=== PATIENT | female | born 1985 | race Caucasian/White ===

== ENCOUNTER 2017-04-19 06:39 | Emergency (ER) | payer OTHER, BC ==
[2017-04-19] MEDS: KETOROLAC 30 MG/ML VIAL (J1885) IV (07:00)
[2017-04-19 08:05] LABS: D-DIMER QUANT < 270.0 ng/ml (<500)
== END 2017-04-19 08:59 | disposition home or self-care (01) ==
LOC: M ED 06:39
DX: R07.89 Other chest pain (principal)
CPT/HCPCS: J1885

== ENCOUNTER → 2019-09-25 | Outpatient (REF) | payer OTHER ==
[~2019-09-25] MED LIST: IBUP80TA PO; PERC5TAB12 PO
[2019-09-25 14:06] LABS: HEMATOCRIT 41.4 % (36.0-47.0); HEMOGLOBIN 13.5 g/dl (12.0-15.5); MEAN CORPUSCULAR HEMOGLOBIN 31.3 pg (27.0-33.0); MEAN CORPUSCULAR HGB CONC 32.6 g/dl (32.0-36.5); MEAN CORPUSCULAR VOLUME 96.1 fl (80.0-96.0); PLATELET COUNT, AUTOMATED 237 10^3/uL (150-450); RED BLOOD COUNT 4.31 10^6/uL (4.00-5.40); WHITE BLOOD COUNT 5.7 10^3/uL (4.0-10.0)
[2019-09-25 16:57] LABS: CHLAMYDIA DNA AMPLIFICATION NEGATIVE (NEGATIVE); GC DNA AMPLIFICATION NEGATIVE (NEGATIVE)
[2019-09-26 10:31] LABS: HEPATITIS C VIRUS ABY INDEX 0.2 INDEX (<0.8); HIV 1&2 SCREEN CENTAUR NEGATIVE (NEGATIVE)
== END ==
LOC: M PLALAB 10:36
PROVIDERS: ATTEND Advanced Practice Midwife
DX: Z34.01 Encounter for supervision of normal first pregnancy, first trimester (principal)

== ENCOUNTER → 2019-11-28 | Outpatient (CLI) | payer OTHER ==
--- NOTE | 2019-12-29 08:16 | REP ---
COMPLETE OBSTETRIC ULTRASOUND CLINICAL: Anatomical evaluation. TECHNIQUE: Transabdominal obstetrical ultrasound with color Doppler evaluation. FINDINGS: Ultrasound examination demonstrates a single live intrauterine in transverse lie with head to the maternal left. Placenta noted posteriorly and grade 0 without evidence for placenta previa or abruption. Amniotic fluid volume is normal. Cervix measures 4.6 cm in length and appears closed. 4.1 cm anterior intramural fibroid is suspected. heart rate equals 129 beats per minute. MEASUREMENTS: BPD 47 mm 20 weeks 4 days HC 174 mm 20 weeks 0 days AC 151 mm 20 weeks 3 days FL 31 mm 19 weeks 6 days HL 29 mm 19 weeks 6 days Anatomical assessment demonstrates normal structures including posterior fossa, thalami, stomach, kidneys, bladder, four chamber heart and outflow tracts, three-vessel cord/cord insertion, facial features and extremities. Limited evaluation of the spine noted. IMPRESSION: Single live intrauterine in transverse lie demonstrating appropriate estimated weight. Limited evaluation of the spine may warrant reevaluation and follow-up. The remainder of the anatomical assessment is complete and normal. MTDD
== END ==
LOC: M WHC 09:56
PROVIDERS: ATTEND Specialist
DX: Z34.02 Encounter for supervision of normal first pregnancy, second trimester (principal); Z3A.20 20 weeks gestation of pregnancy

== ENCOUNTER → 2019-12-23 | Outpatient (CLI) | payer OTHER ==
--- NOTE | 2020-01-01 11:39 | REP ---
OBSTETRIC SONOGRAPHY HISTORY: Supervision of for anatomy follow up spine. FINDINGS: Scanning through the gravid uterus demonstrates a single living intrauterine gestation in a variable lie. motion is observed, and heart rate is recorded at 153 beats per minute. A posterior grade 1 placenta is seen without evidence of previa or abruption. Amniotic fluid is subjectively normal. Closed cervical length is measured at 4.9 cm, viewed transabdominally. spine is visualized on todays study and is normal in appearance. Also visualized are face and profile nose and lips, four chamber heart, left-sided stomach, and kidneys. BIOMETRY CHART: BPD 5.9 cm 24 weeks 1 day Head Circumference 21.8 cm 23 weeks 6 days Abdominal Circumference 19.4 cm 24 weeks 1 day Femur Length 4.1 cm 23 weeks 3 days Humeral Length 3.9 cm 23 weeks 6 days HC/AC ratio normal 1.12 Cephalic index normal 0.75 Estimated weight 633 grams, 1 pound 68 ounces 58th percentile for 23 weeks 0 days IMPRESSION: Single living intrauterine gestation at 23 weeks 6 days by todays composite criteria. SULTANA by todays sonography April 14, 2020. spine images are unremarkable. MTDD
== END ==
LOC: M WHC 11:04
PROVIDERS: ATTEND Advanced Practice Midwife
DX: Z34.82 Encounter for supervision of other normal pregnancy, second trimester (principal); Z36.2 Encounter for other antenatal screening follow-up; Z3A.23 23 weeks gestation of pregnancy

== ENCOUNTER → 2020-01-15 | Outpatient (CLI) | payer OTHER ==
[2020-01-15 14:07] LABS: BASO % 0.1 % (0.0-1.0); EOS # 0.1 10^3/uL (0.0-0.5); EOS % 1.3 % (0.0-3.0); HEMATOCRIT 38.2 % (36.0-47.0); HEMOGLOBIN 12.4 g/dl (12.0-15.5); LYMPH # 1.3 10^3/uL (1.5-5.0); LYMPH % 13.1 % (24.0-44.0); MEAN CORPUSCULAR HEMOGLOBIN 32.1 pg (27.0-33.0); MEAN CORPUSCULAR HGB CONC 32.5 g/dl (32.0-36.5); MONO # 0.8 10^3/uL (0.0-0.8); NEUTROPHILS # 7.6 10^3/uL (1.5-8.5); NEUTROPHILS % 76.9 % (36.0-66.0); PLATELET COUNT, AUTOMATED 232 10^3/uL (150-450); RED BLOOD COUNT 3.86 10^6/uL (4.00-5.40); WHITE BLOOD COUNT 9.8 10^3/uL (4.0-10.0)
== END ==
LOC: M PLALAB 08:18
PROVIDERS: ATTEND Advanced Practice Midwife
DX: Z34.02 Encounter for supervision of normal first pregnancy, second trimester (principal); Z36.89 Encounter for other specified antenatal screening

== ENCOUNTER → 2020-03-12 | Outpatient (REF) | payer OTHER ==
[2020-03-12 13:57] LABS: ALBUMIN 2.6 GM/DL (3.2-5.2); ALT/SGPT 30 U/L (12-78); BILIRUBIN,DIRECT < 0.1 MG/DL (0.0-0.2); BILIRUBIN,TOTAL 0.2 MG/DL (0.2-1.0); TOTAL PROTEIN 5.7 GM/DL (6.4-8.2)
== END ==
LOC: M PLALAB 10:31
PROVIDERS: ATTEND Advanced Practice Midwife
DX: L29.9 Pruritus, unspecified (principal)

== ENCOUNTER → 2020-03-24 | Outpatient (REF) | payer OTHER | LOC: M PLALAB 11:11 | PROVIDERS: ATTEND Obstetrics & Gynecology | DX: Z34.83 Encounter for supervision of other normal pregnancy, third trimester (principal); Z3A.36 36 weeks gestation of pregnancy ==

== ENCOUNTER 2020-04-02 06:51 | Inpatient (IN) | payer OTHER ==
[~2020-04-02] VITALS: Ht 167.6 cm; Wt 92.9 kg
[2020-04-02] MEDS ORDERED: PENICILLIN G POTASSIUM IV 5 MU in D5W MINI-BAG PLUS 100 ML IV STA (10:07)
[2020-04-02] MEDS ORDERED: LACTATED RINGER'S 1000 ML IV STA (10:07)
[2020-04-02] MEDS ORDERED: LR 1,000 ML IV SCH (10:07)
--- NOTE | 2020-04-02 10:29 | HPEPDOC ---
Obstetrical History & Physical General Date of Admission Apr 02, 2020 at 09:57 Primary Care Physician: LORRAINE ATKINS CNM History of Present Illness Zee is a 34 y/o at 37.3 weeks EGA by LMP on 07/15/19, with SULTANA 04/20/20. She started care at [facility] in the first trimester. has been uncomplicated. She had LFTs and bile acids drawn on 03/02/20, for itching but they were WNL. She presented to Labor and Delivery with a complaint of contractions that started at 0500 this morning. She denies vaginal bleeding, LOF. Reports active movement. Denies headache, visual changes, chest pain, SOB. Chief Complaint: Contractions, term Information Provided By: Patient Age: 34 : 1 Term: 0 Pre-term: 0 Abortions: 0 Livin Care Care: Good Care Dating Final EDC: Apr 20, 2020 Final EDC by: LMP LMP: Jul 15, 2019 1st Trimester Date: Sep 25, 2019 Weeks + Days: 10.4 EGA at Admission: 37.3 Antepartum Course Pre- weight (lbs.): 150 Past Medical History Past Obstetrical History : Past Obstetrical History: Primgravida [employer] History: No pertinent history Past Medical History Medical History Migraines, currently taking Fioricet PRN, stopped taking Topamax and Imitrex with Situational depression, no medications Surgical History: Denies/None Family History Significant Family History: Diabetes (MGF Type 2), Heart disease (Father-- atrial fibrillation), Hyperlipidemia (Father), Other (Osteopenia) Social History Marital Status: Single Family situation: Spouse/partner home Psychosocial History: Anxiety, Depression * Smoker: non-smoker Alcohol: Denies Drugs: denies Imunizations Tdap status: current Influenza Status: current Allergies Coded Allergies: escitalopram (Verified Allergy, Unknown, 04/02/20) nausea and sleep disturbances Medications Scheduled PRN Ibuprofen (Ibuprofen) 800 Mg Tab, 800 MG PO Q6H PRN for PAIN Oxycodone HCl/Acetaminophen (Percocet 5-325 mg Tablet) 1 Tab Tab, 1 TAB PO Q6H PRN for PAIN Physical Examination Physical Examination GENERAL: Alert and oriented times three. ABDOMEN: Gravid and non-tender to touch. FETUS: Is vertex (VTX) by sterile vaginal examination (SVE), fetus is vertex (VTX) by David. EFW 6-6.5lbs by Naina. HEART RATE: Regular rate and rhythm. LUNGS: Clear to auscultation (CTA) bilaterally EXTREMITIES: No edema. No clonus. Deep tendon reflexes (DTRs) + 2. Laboratory Data 24H LABS Laboratory Tests 2 04/02/20 10:05: Serology Scanned Report Hepatitis B Testing Pertinent Laboratoy Data Blood Type: A+ RBC Antibody Screen: Negative HIV: Negative Hepatitis B: Negative Hepatitis C: Negative Rapid Plasma Reagin: Nonreactive Rubella: Immune Chlamydia/Gonorrhea: Negative Group B Streptococcus: Positive Glucose Tolerance Test: 117 Steroid Therapy Steroid Therapy: No Vaginal Examination Dilation: 3 cm Effacement: 100% Station: 0 Cervical Consistency: Soft Cervical Position: Middle Presentation: Cephalic presentation Assessment Heart Rate (FHR): 120 Variability: Moderate Accelerations: Positive Decelerations: None Tocometer Contractions: Yes Frequency: regular, every 2-5 min. Duration: greater than 60 seconds Strength: palpated as moderate Multi-drug resistant Organism: No history of MDRO Assessment/Plan Assessment IUP at 37.3 weeks Active Labor GBS Positive Category 1 FHT Plan Admit and orient to Labor and Delivery. Activity as tolerated. Diet: Clear liquids. Group B Streptococcus (GBS) POSITIVE. Penicillin G 5 million unit loading dose, then 2.5million units every 4 hours until delivery. Labs and intravenous (IV) per unit protocol. Counseled on Pitocin and induction of labor (IOL). Lactated Ringers (LR): Bolus 800mL bolus prior to epidural Consult Anesthesia for epidural placement. Anticipate normal spontaneous delivery (). C-S as appropriate. LORRAINE ATKINS CNM Apr 02, 2020 10:29
[2020-04-02 11:37] LABS: HEMATOCRIT 44.5 % (36.0-47.0); HEMOGLOBIN 14.9 g/dl (12.0-15.5); MEAN CORPUSCULAR HEMOGLOBIN 31.6 pg (27.0-33.0); MEAN CORPUSCULAR HGB CONC 33.5 g/dl (32.0-36.5); MEAN CORPUSCULAR VOLUME 94.5 fl (80.0-96.0); PLATELET COUNT, AUTOMATED 253 10^3/uL (150-450); RED BLOOD COUNT 4.71 10^6/uL (4.00-5.40); WHITE BLOOD COUNT 12.9 10^3/uL (4.0-10.0)
[2020-04-02 11:59] LABS: ALT/SGPT 31 U/L (12-78); BILIRUBIN,TOTAL 0.4 MG/DL (0.2-1.0); CREATININE FOR GFR 0.67 MG/DL (0.55-1.30); GLOMERULAR FILTRATION RATE > 60.0 (>60); LDH LACTATE DEHYDROGENASE 228 U/L (84-246); URIC ACID 4.4 MG/DL (2.6-6.0)
[2020-04-02] MEDS ORDERED: EPIDURAL COMMENT XX SCH (12:01)
[2020-04-02] MEDS ORDERED: ONDANSETRON 4MG/2ML VIAL IV PRN (12:01)
[2020-04-02] MEDS ORDERED: LACTATED RINGER'S 1000 ML IV PRN (12:01)
[2020-04-02] MEDS ORDERED: ePHEDrine SULFATE 25 MG/5 ML(5MG/ML) SYRINGE IV PRN (12:01)
[2020-04-02] MEDS ORDERED: NALOXONE INJ 0.4MG/1ML VIAL (J2310 PER 1MG) IV PRN (12:01)
[2020-04-02] MEDS ORDERED: EPIDURAL/PCA KEYS XX PRN (12:01)
[2020-04-02] MEDS ORDERED: diphenhydrAMINE 50MG/ML VIAL (J1200) IV PRN (12:01)
[2020-04-02] MEDS ORDERED: FENTANYL/ROPIVACAINE/NACL BAG 100 ML EPIDURAL SCH (12:01)
[2020-04-02] MEDS ORDERED: REFRIGERATOR IV KEYS XX PRN (12:01)
--- NOTE | 2020-04-02 12:07 | IPNPDOC ---
Obstetrical Progress Note Date of Service Apr 02, 2020 Subjective Zee is breathing well through contractions. Reports increased sense of pressure, moderate amount of bloody show at this time. Objective SROM for moderate amount of clear fluid. Moderate amount of bloody show with SVE. Assessment Heart Rate (FHR): 135 Variability: Increased Accelerations: Positive Decelerations: None Heart Rate Tracing: Category I Tocometer Contractions: Yes Frequency: regular, every 1-3 min. Sterile Vaginal Examination Dilation: 7 cm Effacement (%): 100% Station: +1 Cervical Consistency: Soft Cervical Position: Anterior Postion/Presentation: Cephalic presentation Assessment and Plan Age: 34 : 1 Term: 0 Pre-term: 0 Abortions: 0 Livin EGA at Admission: 37.3 Status: Reassuring Group B Streptococcus: Positive Anticipate: Vaginal Delivery Additional Comments Patient prepared for epidural placement at this time. LORRAINE ATKINS CNM Apr 02, 2020 12:01
--- NOTE | 2020-04-02 13:52 | IPNPDOC ---
Obstetrical Progress Note Date of Service Apr 02, 2020 Subjective Zee is very comfortable with her epidural at this time. Denies urge to push. Objective Small amount of clear fluid and bloody show with SVE. Assessment Heart Rate (FHR): 135 Variability: Moderate Accelerations: None Decelerations: Variable, Prolonged (alleviated with position change) Heart Rate Tracing: Category II Tocometer Contractions: Yes Frequency: regular, every 2-5 min. Duration: greater than 60 seconds Strength: palpated as moderate, resting tone palp/soft Sterile Vaginal Examination Dilation: 7 cm Effacement (%): 100% Station: +1 Cervical Consistency: Soft Cervical Position: Anterior Postion/Presentation: Cephalic presentation Assessment and Plan Age: 34 : 1 Term: 0 Pre-term: 0 Abortions: 0 Livin EGA at Admission: 37.3 Status: Reassuring Group B Streptococcus: Positive Anticipate: Vaginal Delivery Additional Comments Keller catheter placed by Soraida oL RN. Consider Pitocin augmentation, if no cervical change. LORRAINE ATKINS CNM Apr 02, 2020 13:52
[2020-04-02] MEDS ORDERED: PENICILLIN G POTASSIUM IV 2.5 MU in IV 1 EA IV SCH (16:00)
--- NOTE | 2020-04-02 16:31 | IPNPDOC ---
Obstetrical Progress Note Date of Service Apr 02, 2020 Subjective Zee denies feeling urge to push. Moderate amount of bloody show noted on SVE. Patient opting to wait for her mother/pipe fitter street service to arrive before she starts to push. Reviewed pushing methods and positions. She has received 2 doses of Penicillin G for GBS positive status. Assessment Heart Rate (FHR): 145 Variability: Moderate Accelerations: Positive Decelerations: Late Heart Rate Tracing: Category II Tocometer Contractions: Yes Frequency: regular, every 2-5 min. Duration: greater than 60 seconds Strength: palpated as strong, resting tone palp/soft Sterile Vaginal Examination Dilation: complete Effacement (%): 100% Station: +2 Postion/Presentation: Cephalic presentation Assessment and Plan Age: 34 : 1 Term: 0 Pre-term: 0 Abortions: 0 Livin EGA at Admission: 0 Status: Reassuring Group B Streptococcus: Positive Anticipate: Vaginal Delivery LORRAINE ATKINS CNM Apr 02, 2020 16:31
[2020-04-02] MEDS ORDERED: OXYTOCIN 30 UNITS IN 0.9% NaCl 500ML IV BAG (J2590) As Ordered ONE (18:42)
[2020-04-02] MEDS ORDERED: BENZOCAINE 20% HEMORRHOIDAL OINTMENT 28GM TUBE TOP PRN (19:00)
[2020-04-02] MEDS ORDERED: ACETAMINOPHEN 500 MG TAB PO PRN (19:00)
[2020-04-02] MEDS ORDERED: RHOGAM 300 MCG (1500 IU) INJ (J2790) IM SCH (19:00)
[2020-04-02] MEDS ORDERED: ACETAMINOPHEN TAB 650MG DOSE (2X325MG) PO PRN (19:00)
[2020-04-02] MEDS ORDERED: DOCUSATE SODIUM 100MG CAPSULE PO PRN (19:00)
[2020-04-02] MEDS ORDERED: METHYLERGONOVINE MALEATE 0.2 MG TAB PO PRN (19:00)
[2020-04-02] MEDS ORDERED: IBUPROFEN 800 MG TAB PO PRN (19:00)
[2020-04-02] MEDS ORDERED: MEASLES,MUMPS,RUBELLA VACCINE INJ (MMR-II) (90707) SC SCH (19:00)
[2020-04-02] MEDS ORDERED: ANUSOL HC CREAM 30GM TOP PRN (19:00)
[2020-04-02 19:06] VITALS: BP 125/58
--- NOTE | 2020-04-02 19:13 | DNPDOC ---
[facility] Delivery Note Delivery Note DATE OF DELIVERY: 04/02/20 @ 1805 PREDELIVERY DIAGNOSIS: 37-3/7 weeks' gestation and labor. POST DELIVERY DIAGNOSIS: Delivered. PROCEDURE: Spontaneous vaginal delivery. JEWELRY FACER: Lorraine Stroud CNM, MARLENI and OWEN Billings ANESTHESIA: Epidural. ESTIMATED BLOOD LOSS: 200 mL. FINDINGS: 7pound 6 ounce, 3350g Male infant, Score 8/9, loose nuchal cord times 1. DELIVERY SUMMARY: Zee is a 34-year-old 1 now para 1-0-0-1 who was admitted to labor and delivery for active labor that began at 0500. She progressed on her own and received an epidural this afternoon. SROM at 1152 just prior to epidural. Full dilation was at 1630 and she opted to labor down for approximately 45 minutes, then she began pushing. head delivered in ROMARIO position with restitution to LOT, loose nuchal cord x1 reduced. Anterior shoulder and corpus followed with ease. placed on maternal abdomen, skin to skin, pink and crying with stimulation. Cord was clamped x2 and cut by FOB when pulsations ceased. Cord blood collected. Placenta delivered spontaneously, intact, kranthi mechanism at 1811 with minimal pushing effort. Fundus firmed to U-2 with fundal massage and IV Pitocin bolus. Perineum, cervix, and vagina examined and a 1st degree perineal was found and repaired with 3-0 Vicryl. Bilateral labial lacerations noted to be hemostatic and not repaired. Sponges and sharps counted and correct. Zee plans to breastfeed and infant's name will be "Trevor". Infant and mother left in stable condition and at this time. LORRAINE STROUD CNM Apr 02, 2020 19:13
[2020-04-02 19:20] VITALS: BP 135/61
[2020-04-02 21:20] VITALS: BP 144/67
[2020-04-03 06:00] VITALS: BP 132/63
--- NOTE | 2020-04-03 07:00 | IPNPDOC ---
Progress Note Date of Service: Apr 03, 2020 Day#: 1 Progress Note SUBJECT: Zee is a 34-year-old 1 now Para 1-0-0-1 status post uncomplicated spontaneous vaginal delivery with post vaginal laceration and repair, doing well day # 1. She has been ambulating, voiding s pontaneously without issue and tolerating regular diet. Infant has not been well, reviewed latching and normal behaviors, encouraged to continue . Reports lochia is like a normal period. Pain has been well controlled with Tylenol and Motrin. OBJECTIVE: VITAL SIGNS: Within normal limits, afebrile. Alert and oriented times three. Respirations regular, no accessory muscle use. Abdomen: Fundus firm at U-2. Soft, NTTP. Extremities: no edema, no calf tenderness Minimal lochia. ASSESSMENT: Day #1 PLAN: 1. May shower today 2. Tylenol and Motrin for pain. 3. Encourage breast feeding and ambulation. 4. Plan for discharge home tomorrow. VS, I&O, 24H, Fishbone Vital Signs/I&O Vital Signs Date Time Temp Pulse Resp B/P (MAP) Pulse Ox O2 Delivery O2 Flow Rate FiO2 04/02/20 21:20 99.1 102 20 144/67 (92) 04/02/20 19:06 98 Room Air I&O- Last 24 Hours up to 6 AM 04/03/20 06:00 Intake Total 1030 ml Output Total 950 ml Balance 80 ml Laboratory Data 24H LABS Laboratory Tests 2 04/02/20 10:05: Serology Scanned Report Hepatitis B Testing 04/02/20 11:18: Nucleated Red Blood Cells % (auto) 0.0, Glomerular Filtration Rate > 60.0, Uric Acid 4.4, Total Bilirubin 0.4, Aspartate Amino Transf (AST/SGOT) 20, Alanine Aminotransferase (ALT/SGPT) 31, Lactate Dehydrogenase 228 CBC/BMP Laboratory Tests 04/02/20 11:18 LORRAINE ATKINS CNM Apr 03, 2020 07:00
[2020-04-03] MEDS: PRENATAL VITAMINS CHEWABLE TABLET PO SCH (09:08)
[2020-04-03] MEDS: IBUPROFEN 600MG TAB PO PRN (18:41)
[2020-04-03 23:16] VITALS: BP 137/67
[2020-04-04 06:00] VITALS: BP 117/55
[2020-04-04] MEDS: PRENATAL VITAMINS CHEWABLE TABLET PO SCH (07:37)
[2020-04-04] MEDS: IBUPROFEN 600MG TAB PO PRN (07:37)
--- NOTE | 2020-04-04 10:04 | IPNPDOC ---
Progress Note Date of Service: Apr 04, 2020 Day#: 2 Progress Note SUBJECT: Status post . Pain well controlled. She has been ambulating, voiding spontaneously without issue and tolerating regular diet. Lochia decreasing/minimal. OBJECTIVE: VITAL SIGNS: Within normal limits, afebrile. Alert and oriented times three. Abdomen: Fundus firm at U-2. Soft, NTTP. ASSESSMENT: Status post uncomplicated spontaneous vaginal delivery. Vitals within normal limits, afebrile, hemodynamically stable with no evidence of infe ction. PLAN: Discharge to home today. Tylenol and Motrin for pain. Routine instructions/precautions reviewed. Routine PP visit in 6 weeks in clinic. VS, I&O, 24H, Fishbone Vital Signs/I&O Vital Signs Date Time Temp Pulse Resp B/P (MAP) Pulse Ox O2 Delivery O2 Flow Rate FiO2 04/04/20 06:00 98.3 70 16 117/55 (75) 04/03/20 23:16 99 Room Air EVARISTO LAMBERT DO Apr 04, 2020 10:04
[2020-04-04] MEDS ORDERED: IBUP80TA PO (10:06)
[2020-04-04] MEDS ORDERED: ACET-683 PO (10:06)
== END 2020-04-04 14:45 | disposition home or self-care (01) | DRG 807 ==
LOC: M LDO 06:51 → M LDI 09:57 → M OBS 21:15
PROVIDERS: ADMIT Advanced Practice Midwife; ATTEND Specialist
PROC: 10E0XZZ Delivery of Products of Conception, External Approach (ICD-10-PCS; principal; 2020-04-02)
PROC: 0HQ9XZZ Repair Perineum Skin, External Approach (ICD-10-PCS; 2020-04-02)
DX: O99.824 Streptococcus B carrier state complicating childbirth (principal); Z37.0 Single live birth; Z3A.37 37 weeks gestation of pregnancy; Z88.8 Allergy status to other drugs, medicaments and biological substances; O70.0 First degree perineal laceration during delivery; O69.81X0 Labor and delivery complicated by cord around neck, without compression, not applicable or unspecified

== ENCOUNTER → 2020-07-16 | Outpatient (REF) | payer OTHER ==
[~2020-07-16] MED LIST changes: +ACET-683 PO
== END ==
LOC: M SFHCWAGY 13:00
PROVIDERS: ATTEND Advanced Practice Midwife
DX: Z12.4 Encounter for screening for malignant neoplasm of cervix (principal)
CPT/HCPCS: 87624; G0123

== ENCOUNTER → 2020-08-17 | Outpatient (CLI) | payer OTHER ==
--- NOTE | 2020-08-18 03:34 | REP ---
INDICATION: METATARSALGIA OF LEFT FOOT COMPARISON: None. TECHNIQUE: AP, lateral, bilateral oblique views left foot. FINDINGS: Osseous structures, joint spaces, and surrounding soft tissues are essentially age-appropriate. No evidence for acute or healed injury. No overt osteoarthritic or inflammatory arthritic changes are appreciated. IMPRESSION: Relatively normal age-appropriate left foot radiographs.. <Electronically signed by Carlos Mullins > 08/18/20 [id number]
== END ==
LOC: M ADAMS 15:56
PROVIDERS: ATTEND Family Medicine
DX: M77.42 Metatarsalgia, left foot (principal)

== ENCOUNTER → 2020-10-21 | Outpatient (CLI) | payer OTHER ==
[~2020-10-21] MED LIST changes: +BLIS1TAB2 PO; +LO LTAB PO; +MIRT-60 PO; +NAPR-885 PO; +ONDA4TAB6 PO; +PANT40TA29 PO; +VITMTA PO
[2020-10-21 15:25] LABS: BASO % 0.1 % (0.0-1.0); EOS # 0.1 10^3/uL (0.0-0.5); HEMATOCRIT 42.5 % (36.0-47.0); HEMOGLOBIN 14.2 g/dl (12.0-15.5); LYMPH % 14.2 % (24.0-44.0); MEAN CORPUSCULAR HEMOGLOBIN 30.9 pg (27.0-33.0); MEAN CORPUSCULAR HGB CONC 33.4 g/dl (32.0-36.5); MEAN CORPUSCULAR VOLUME 92.4 fl (80.0-96.0); MONO # 0.8 10^3/uL (0.0-0.8); MONO % 11.8 % (2.0-8.0); NEUTROPHILS # 5.1 10^3/uL (1.5-8.5); NEUTROPHILS % 72.5 % (36.0-66.0); PLATELET COUNT, AUTOMATED 252 10^3/uL (150-450)
[2020-10-21 15:51] LABS: BLOOD UREA NITROGEN 7 MG/DL (7-18); CARBON DIOXIDE LEVEL 27 MEQ/L (21-32); CHLORIDE LEVEL 106 MEQ/L (98-107); CREATININE FOR GFR 0.71 MG/DL (0.55-1.30); GLOMERULAR FILTRATION RATE > 60.0 (>60); GLUCOSE, FASTING 87 MG/DL (70-100); POTASSIUM SERUM 3.7 MEQ/L (3.5-5.1); SODIUM LEVEL 139 MEQ/L (136-145)
[2020-10-21 15:52] LABS: ALBUMIN 3.6 GM/DL (3.2-5.2); ALT/SGPT 56 U/L (12-78); BILIRUBIN,TOTAL 0.9 MG/DL (0.2-1.0); CALCIUM LEVEL 8.6 MG/DL (8.5-10.1); LIPASE 170 U/L (73-393); TOTAL PROTEIN 7.1 GM/DL (6.4-8.2)
== END ==
LOC: M PLALAB 13:47
PROVIDERS: ATTEND Physician Assistant
DX: K52.9 Noninfective gastroenteritis and colitis, unspecified (principal)

== ENCOUNTER → 2020-10-22 | Outpatient (REF) | payer OTHER | LOC: M SFHCPLAZ 12:02 | PROVIDERS: ATTEND Physician Assistant | DX: K52.9 Noninfective gastroenteritis and colitis, unspecified (principal) ==

== ENCOUNTER → 2020-10-22 | Outpatient (REF) | payer OTHER | LOC: M SFHCPLAZ 16:30 | PROVIDERS: ATTEND Physician Assistant | DX: K52.9 Noninfective gastroenteritis and colitis, unspecified (principal) ==

== ENCOUNTER 2020-10-24 06:28 | Inpatient (IN) | payer OTHER ==
[~2020-10-24] VITALS: Ht 167.6 cm; Wt 84.2 kg
[~2020-10-24 06:28] MED LIST changes: -BLIS1TAB2 PO; -LO LTAB PO; -MIRT-60 PO; -NAPR-885 PO; -ONDA4TAB6 PO; -PANT40TA29 PO; -VITMTA PO
[2020-10-24] MEDS ORDERED: VITMTA PO (06:34)
[2020-10-24] MEDS ORDERED: LO LTAB PO (06:34)
[2020-10-24] MEDS ORDERED: NS 1,000 ML IV ONE ×3 (06:45→22:00)
[2020-10-24] MEDS ORDERED: ONDANSETRON 4MG/2ML VIAL IV ONE (07:35)
[2020-10-24] MEDS ORDERED: ACETAMINOPHEN 325 MG TAB PO ONE (07:35)
[2020-10-24 07:39] LABS: BASO % 0.1 % (0.0-1.0); EOS # 0.1 10^3/uL (0.0-0.5); EOS % 1.6 % (0.0-3.0); HEMATOCRIT 43.2 % (36.0-47.0); HEMOGLOBIN 14.3 g/dl (12.0-15.5); LYMPH # 0.5 10^3/uL (1.5-5.0); LYMPH % 6.2 % (24.0-44.0); MEAN CORPUSCULAR HEMOGLOBIN 30.2 pg (27.0-33.0); MEAN CORPUSCULAR HGB CONC 33.1 g/dl (32.0-36.5); MEAN CORPUSCULAR VOLUME 91.3 fl (80.0-96.0); MONO # 0.8 10^3/uL (0.0-0.8); MONO % 9.3 % (2.0-8.0); NEUTROPHILS # 6.9 10^3/uL (1.5-8.5); NEUTROPHILS % 82.4 % (36.0-66.0); PLATELET COUNT, AUTOMATED 251 10^3/uL (150-450); RED BLOOD COUNT 4.73 10^6/uL (4.00-5.40); WHITE BLOOD COUNT 8.4 10^3/uL (4.0-10.0)
[2020-10-24 08:02] LABS: ALBUMIN 3.4 GM/DL (3.2-5.2); ALT/SGPT 102 U/L (12-78); BILIRUBIN,DIRECT 0.5 MG/DL (0.0-0.2); BLOOD UREA NITROGEN 7 MG/DL (7-18); CALCIUM LEVEL 8.5 MG/DL (8.5-10.1); CARBON DIOXIDE LEVEL 26 MEQ/L (21-32); CHLORIDE LEVEL 110 MEQ/L (98-107); CREATININE FOR GFR 0.66 MG/DL (0.55-1.30); GLOMERULAR FILTRATION RATE > 60.0 (>60); GLUCOSE, FASTING 101 MG/DL (70-100); LIPASE 176 U/L (73-393); SODIUM LEVEL 143 MEQ/L (136-145); TOTAL PROTEIN 6.9 GM/DL (6.4-8.2)
[2020-10-24] MEDS ORDERED: METOCLOPRAMIDE INJ 10MG/2ML VIAL (J2765 PER 1) IV ONE (09:15)
[2020-10-24 09:37] LABS: C REACTIVE PROTEIN QUANTITATIV 3.97 MG/DL (0.00-0.30); FERRITIN 113 NG/ML (8-252); IRON (FE) 62 UG/DL (50-170); MAGNESIUM LEVEL 2.1 MG/DL (1.8-2.4); RHEUMATOID FACTOR QUANT < 10.0 IU/ML (<15.0)
[2020-10-24 09:46] LABS: ERYTHROCYTE SEDIMENTATION RATE 27 mm/hr (0-20)
[2020-10-24] MEDS ORDERED: PROMETHAZINE INJ 25 MG/ML VIAL (J2550) IV ONE (11:35)
[2020-10-24] MEDS ORDERED: NAPR-885 PO (11:46)
[2020-10-24] MEDS ORDERED: PANT40TA29 PO (11:46)
[2020-10-24] MEDS ORDERED: MIRT-60 PO (11:46)
[2020-10-24] MEDS ORDERED: BLIS1TAB2 PO (11:46)
[2020-10-24] MEDS ORDERED: ONDA4TAB6 PO (12:27)
[2020-10-24] MEDS ORDERED: MIRTAZAPINE 15 MG TAB PO PRN (12:40)
[2020-10-24] MEDS ORDERED: KCL 10MEQ/100ML SWI (KRUN) 10 MEQ in IV 1 EA IV ONE (13:15)
[2020-10-24] MEDS: ACETAMINOPHEN TAB 650MG DOSE (2X325MG) PO PRN ×2 (14:02→18:08)
--- NOTE | 2020-10-24 15:24 | HPEPDOC ---
[facility] Medical History & Physical Date of Admission Oct 24, 2020 Date of Service: Oct 24, 2020 Attending Physician: LO GREGORIO MD History and Physical CHIEF COMPLAINT: Diarrhea, abdominal cramping, diffuse joint aches and N/V for 1 week, recently diagnosed with adenovirus in the outpatient setting. 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 She reports having travelled 1 weekend ago briefly but otherwise was well until Wednesday 10/18. She went to see her PCP on 10/21 after she continued to symptoms and a GI panel was sent on 10/22 that was positive for adenovirus and she was noted to have a mild transaminitis. She came in today feeling weak, with persistent severe watery non-bloody diarrhea with bloating and no refugio abdominal pain. She reports poor PO. On ED evaluation she was noted to have an abdominal papular non-pruritic blanching rash. Workup was notable for a WBC of 8.4, ESR 27, CRP 3.7, Hgb 14.3, platelets of 251, na 143, K 3, Cr 0.66, lipase 176, AST 50, ALT 102, Tbili of 1 and alk phos of 117. I am now admitting her under observations for supportive treatment of the adenovirus enteritis with dehydration, transaminitis and electrolyte derangements. PAST MEDICAL HISTORY: Severe CAP when she was a teenager PAST SURGICAL HISTORY: None SOCIAL HISTORY: Works as a nurse at [employer] No smoking Occasional alcohol use No illicit drug use FAMILY HISTORY: Father had cancer in his mid 40s. ALLERGIES: Please see below. REVIEW OF SYSTEMS: 10 point ROS was notable for the elements noted in the HPI and was otherwise negative. HOME MEDICATIONS: Please see below. PHYSICAL EXAMINATION: VITAL SIGNS: See below GENERAL APPEARANCE: Ill appearing, otherwise well developed well nourished woman who appears her stated age HEENT: NCAT, EOMI, MMM, clear oropharynx with good dentition and clear posterior oropharynx Neck: No palpable adenopathy CARDIOVASCULAR: Has a soft systolic murmur noted on exam, otherwise regular rate and rhythm LUNGS: CTAB ABDOMEN: Normoactive bowel sounds, soft, negative Contreras's, NTND, no hepatic or splenic enlargement. No rebound tenderness or guarding. No flank pain MUSCULOSKELETAL: Moving all extremities with fulls strength EXTREMITIES: WWP, no LE edema NEUROLOGICAL: CN3-12 intact, speech clear without dysarthia PSYCHIATRIC: Aox3 LABORATORY DATA: Summarized above, please see below for details. IMAGING: None MICROBIOLOGY: Please see below. 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 Adenovirus gastroenteritis: -s/p 1L NS bolus, continue NS at 100cc/hr -zofran 4mg IV Q4HP Hypokalemia: -asked ED to give at least 40me KCl via IV -Very por PO for daily with copious diarrhea and dehydration, so will check K, Mag, phos and Ca at 6PM with a repeat BMP Transaminitis: likely 2/2 adenovirus infection -liver US -hydration -recheck on AM labs -f/u hepatitis serologies that were ordered in the ED Abdominal rash: likely a consequence of the ongoing adenovirus infection -however with the noted papular rash, joint aches, elevated inflammatory markers with GI symptoms, will also expand to include tickborne panel that was already ordered in the ED. DVT ppx: lovenox 40mg SC Vital Signs Vital Signs Date Time Temp Pulse Resp B/P (MAP) Pulse Ox O2 Delivery O2 Flow Rate FiO2 10/24/20 12:48 99.0 96 16 120/56 (77) 100 Room Air Laboratory Data Labs 24H Laboratory Tests 2 10/24/20 07:11: Anion Gap 7L, Glomerular Filtration Rate > 60.0, Calcium Level 8.5, Magnesium Level 2.1, Iron Level 62, Ferritin 113, Total Bilirubin 1.0, Direct Bilirubin 0.5H, Aspartate Amino Transf (AST/SGOT) 50H, Alanine Aminotransferase (ALT/SGPT) 102H, Alkaline Phosphatase 117, C-Reactive Protein, Quantitative 3.97H, Total Protein 6.9, Albumin 3.4, Albumin/Globulin Ratio 1.0L, Lipase 176, Rheumatoid Factor < 10.0 10/24/20 07:22: POC Beta HCG, Quantitative < 5.0 10/24/20 07:23: Immature Granulocyte % (Auto) 0.4, Neutrophils (%) (Auto) 82.4H, Lymphocytes (%) (Auto) 6.2L, Monocytes (%) (Auto) 9.3H, Eosinophils (%) (Auto) 1.6, Basophils (%) (Auto) 0.1, Neutrophils # (Auto) 6.9, Lymphocytes # (Auto) 0.5L, Monocytes # (Auto) 0.8, Eosinophils # (Auto) 0.1, Basophils # (Auto) 0.0, Nucleated Red Blood Cells % (auto) 0.0, Erythrocyte Sedimentation Rate 27H 10/24/20 11:42: Coronavirus (COVID-19)(PCR) NEGATIVE CBC/BMP Laboratory Tests 10/24/20 07:11 10/24/20 07:23 Home Medications Scheduled Multivitamins (Thera M Plus Tablet) 1 Each Tablet, 1 TAB PO QAM Norethindrone-E.estradiol-Iron (Blisovi Fe 1-20 Tablet) 1 Each Tablet, 1 TAB PO DAILY Pantoprazole Sodium (Pantoprazole Sodium) 40 Mg Tablet.dr, 40 MG PO DAILY Scheduled PRN Mirtazapine (Remeron) 30 Mg Tablet, 30 MG PO QHS PRN for SLEEP Ondansetron (Ondansetron Odt) 4 Mg Tab.rapdis, 4 MG PO TID PRN for NAUSEA OR VOMITING Allergies Coded Allergies: escitalopram (Verified Allergy, Unknown, 04/02/20) nausea and sleep disturbances A-FIB/CHADSVASC A-FIB History Current/History of A-Fib/PAF?: No Current PO Anticoag Therapy: No Age/Risk Factor Scoring CHADSVASC: CHADSVASC Response (Comments) Value Age Risk Factor Age < 65 years old 0 Gender Risk Factor Female 1 Hx of CHF No 0 Hx of HTN No 0 Hx of Stroke/TIA/or VTE No 0 Hx of Diabetes No 0 Hx of Vascular Disease No 0 Total 1 Treatment Treatment ordered: NONE Reason Anticoagulant not given: Not indicated/[id number] LO GREGORIO MD Oct 24, 2020 15:24
[2020-10-24 15:26] VITALS: BP 122/59
--- NOTE | 2020-10-24 16:05 | REP ---
INDICATION: transaminitis i/s/o acute viral enteritis. COMPARISON: None. TECHNIQUE: Right upper quadrant sonography. FINDINGS: Scanning through the right upper quadrant of the abdomen demonstrates a normal sized, thin-walled gallbladder without evidence of stone or polyp. Common bile duct is normal measuring 0.3 cm in greatest diameter. No focal liver lesion is seen. Liver size is normal. No pancreatic abnormality is observed. No right renal abnormality is seen. There is no evidence of ascites. The right kidney measures 9.9 x 5.4 x 3.7 cm. There is a large amount of echogenic sludge in the gallbladder. No stone or polyp seen. IMPRESSION: Echogenic sludge in the gallbladder. No stone or polyp. Otherwise negative.. <Electronically signed by Bon Estrada > 10/24/20 [id number]
[2020-10-24] MEDS: PANTOPRAZOLE 40MG TAB (PROTONIX) PO SCH (16:13)
[2020-10-24] MEDS: NS 1,000 ML IV SCH (16:14)
[2020-10-24] MEDS: SUMAtriptan SUCCINATE 25 MG TAB PO PRN (17:52)
[2020-10-24] MEDS ORDERED: IBUPROFEN 600MG TAB PO PRN (19:30)
[2020-10-24] MEDS ORDERED: KETOROLAC 30 MG/ML 1ML VIAL IV ONE (19:45)
[2020-10-24] MEDS: ONDANSETRON 4MG/2ML VIAL IV PRN (19:57)
[2020-10-24] MEDS: ENOXAPARIN 40MG/0.4ML SYRINGE (J1650 PER 10MG) SC SCH (20:02)
[2020-10-24 21:06] LABS: BLOOD UREA NITROGEN 7 MG/DL (7-18); CALCIUM LEVEL 7.4 MG/DL (8.5-10.1); CARBON DIOXIDE LEVEL 27 MEQ/L (21-32); CHLORIDE LEVEL 109 MEQ/L (98-107); CREATININE FOR GFR 0.74 MG/DL (0.55-1.30); GLOMERULAR FILTRATION RATE > 60.0 (>60); GLUCOSE, FASTING 108 MG/DL (70-100); MAGNESIUM LEVEL 1.8 MG/DL (1.8-2.4); PHOSPHORUS LEVEL 2.1 MG/DL (2.5-4.9); POTASSIUM SERUM 3.1 MEQ/L (3.5-5.1); SODIUM LEVEL 141 MEQ/L (136-145)
[2020-10-24 22:00] VITALS: BP 106/58
[2020-10-24] MEDS ORDERED: POTASSIUM CHLORIDE 10 MEQ SR TABLET PO ONE (22:15)
[2020-10-24] MEDS: KCL 10MEQ/100ML SWI (KRUN) 10 MEQ in IV 1 EA IV SCH (22:20)
[2020-10-25] MEDS: KCL 10MEQ/100ML SWI (KRUN) 10 MEQ in IV 1 EA IV SCH (01:32)
[2020-10-25] MEDS: NS 1,000 ML IV SCH ×3 (01:33→22:05)
[2020-10-25] MEDS: ONDANSETRON 4MG/2ML VIAL IV PRN ×3 (01:46→22:05)
[2020-10-25] MEDS: IBUPROFEN 600MG TAB PO PRN ×2 (05:45→13:04)
[2020-10-25 06:00] VITALS: BP 109/73
[2020-10-25 06:11] LABS: HEMATOCRIT 36.8 % (36.0-47.0); MEAN CORPUSCULAR HEMOGLOBIN 30.1 pg (27.0-33.0); MEAN CORPUSCULAR HGB CONC 32.9 g/dl (32.0-36.5); MEAN CORPUSCULAR VOLUME 91.5 fl (80.0-96.0); PLATELET COUNT, AUTOMATED 246 10^3/uL (150-450); RED BLOOD COUNT 4.02 10^6/uL (4.00-5.40); WHITE BLOOD COUNT 8.6 10^3/uL (4.0-10.0)
[2020-10-25 06:15] LABS: HEMOGLOBIN 12.1 g/dl (12.0-15.5)
[2020-10-25 06:36] LABS: ALBUMIN 2.7 GM/DL (3.2-5.2); ALT/SGPT 94 U/L (12-78); BILIRUBIN,TOTAL 1.4 MG/DL (0.2-1.0); BLOOD UREA NITROGEN 5 MG/DL (7-18); CALCIUM LEVEL 7.5 MG/DL (8.5-10.1); CARBON DIOXIDE LEVEL 24 MEQ/L (21-32); CHLORIDE LEVEL 111 MEQ/L (98-107); CREATININE FOR GFR 0.55 MG/DL (0.55-1.30); GLOMERULAR FILTRATION RATE > 60.0 (>60); GLUCOSE, FASTING 91 MG/DL (70-100); MAGNESIUM LEVEL 1.8 MG/DL (1.8-2.4); POTASSIUM SERUM 3.5 MEQ/L (3.5-5.1); SODIUM LEVEL 141 MEQ/L (136-145); TOTAL PROTEIN 5.6 GM/DL (6.4-8.2)
[2020-10-25] MEDS ORDERED: POTASSIUM CHLORIDE 10 MEQ SR TABLET PO ONE (08:00)
[2020-10-25] MEDS: MULTIVITAMINS/MINERALS THERAP 1 TAB PO SCH (08:04)
[2020-10-25] MEDS: PANTOPRAZOLE 40MG TAB (PROTONIX) PO SCH (08:04)
[2020-10-25] MEDS ORDERED: BLISOVI FE PO SCH (09:00)
[2020-10-25] MEDS ORDERED: NEUTRA-PHOS 1.5 GM PACKET PO ONE (10:00)
[2020-10-25 10:47] LABS: HEPATITIS B SURFACE ANTIGEN NEGATIVE (NEGATIVE)
[2020-10-25 11:14] LABS: HEPATITIS B CORE ANTIBODY IGM NEGATIVE (NEGATIVE)
[2020-10-25 11:16] LABS: HEPATITIS A ANTIBODY IGM NEGATIVE (NEGATIVE)
--- NOTE | 2020-10-25 12:12 | IPNPDOC ---
Text Note Date of Service The patient was seen on 10/25/20. NOTE Subjective: -Diffuse joint aches overnight, better after toradol -Electrolytes were also repleted overnight and continues on IVF -Otherwise continues to have diarrhea PHYSICAL EXAMINATION: VITAL SIGNS: See below GENERAL APPEARANCE: NAD, otherwise well developed well nourished woman who appears her stated age HEENT: NCAT, EOMI, MMM, clear oropharynx with good dentition and clear posterior oropharynx Neck: No palpable adenopathy CARDIOVASCULAR: Has a soft systolic murmur noted on exam, otherwise regular rate and rhythm LUNGS: CTAB ABDOMEN: Normoactive bowel sounds, soft, negative Contreras's, no hepatic or splenic enlargement. No rebound tenderness or guarding. No flank pain MUSCULOSKELETAL: Moving all extremities with full strength EXTREMITIES: WWP, no LE edema NEUROLOGICAL: CN3-12 intact, speech clear without dysarthria PSYCHIATRIC: Aox3 LABORATORY DATA: Reviewed K 3.5 phos 2.1 mag 1.8 AST 43 ALT 94 Tbili 1.4 WBC 8.6 Hgb 12.1 Cr 0.55 IMAGING: Liver US: Scanning through the right upper quadrant of the abdomen demonstrates a normal sized, thin-walled gallbladder without evidence of stone or polyp. Common bile duct is normal measuring 0.3 cm in greatest diameter. No focal liver lesion is seen. Liver size is normal. No pancreatic abnormality is observed. No right renal abnormality is seen. There is no evidence of ascites. The right kidney measures 9.9 x 5.4 x 3.7 cm. There is a large amount of echogenic sludge in the gallbladder. No stone or polyp seen. IMPRESSION: Echogenic sludge in the gallbladder. No stone or polyp. Otherwise negative. MICROBIOLOGY: Please see below. 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 Adenovirus gastroenteritis w/ ongoing diarrhea: -s/p 2L NS bolus, continue NS at 100cc/hr -zofran 4mg IV Q4HP Hypokalemia: i/s/o poor PO and diarrhea -replete PRN Hypophosphatemia: i/s/o poor PO and diarrhea -repleting Transaminitis: likely 2/2 adenovirus infection: improving -liver US with gallbladder sludge without evidence of gallbladder inflammation, CBD dilatation and liver appears wnl -hydration -monitor labs -f/u hepatitis serologies that were ordered in the ED, unlikely Abdominal rash: likely a consequence of the ongoing adenovirus infection -however with the noted papular rash, joint aches, elevated inflammatory markers with GI symptoms, ED expanded to include tickborne panel, f/u. Also check legionnaire antigen DVT ppx: lovenox 40mg SC Dispo: med/surg, obs, likely to discharge home if improving. VS,Fishbone, I+O VS, Fishbone, I+O Laboratory Tests 10/24/20 20:10 10/25/20 05:32 Vital Signs Date Time Temp Pulse Resp B/P (MAP) Pulse Ox O2 Delivery O2 Flow Rate FiO2 10/25/20 06:00 98.5 95 16 109/73 (85) 98 Room Air I&O- Last 24 Hours up to 6 AM 10/25/20 06:00 Intake Total 3540 ml Output Total 900 ml Balance 2640 ml LO GREGORIO MD Oct 25, 2020 07:54
[2020-10-25 14:00] VITALS: BP 108/64
--- NOTE | 2020-10-25 20:26 | ECGEPIP ---
[facility] - ED Test Date: 2020-10-24 Pat Name: CORAL WILL Department: Room: - Gender: Female Pulley Man: : 1985 Requested By: Flavia Singh PA-C Order Number: [id number] Reading MD: Emerald Waggoner Measurements Intervals [place] Rate: 99 P: 70 KS: 196 QRS: -56 QRSD: 94 T: 71 QT: 364 QTc: 467 Interpretive Statements Normal sinus rhythm Left axis deviation irbbb increased rate 04/19/17 Electronically Signed on 10-25-2020 20:25:49 EDT by Emerald Waggoner
[2020-10-25] MEDS: ENOXAPARIN 40MG/0.4ML SYRINGE (J1650 PER 10MG) SC SCH (22:05)
[2020-10-25 22:12] VITALS: BP 113/68
[2020-10-26] MEDS: ONDANSETRON 4MG/2ML VIAL IV PRN ×2 (05:45→10:45)
[2020-10-26 06:00] VITALS: BP 121/68
[2020-10-26 06:13] LABS: HEMATOCRIT 37.3 % (36.0-47.0); HEMOGLOBIN 12.4 g/dl (12.0-15.5); MEAN CORPUSCULAR HEMOGLOBIN 30.5 pg (27.0-33.0); MEAN CORPUSCULAR HGB CONC 33.2 g/dl (32.0-36.5); MEAN CORPUSCULAR VOLUME 91.9 fl (80.0-96.0); PLATELET COUNT, AUTOMATED 262 10^3/uL (150-450); RED BLOOD COUNT 4.06 10^6/uL (4.00-5.40); WHITE BLOOD COUNT 8.8 10^3/uL (4.0-10.0)
[2020-10-26 06:44] LABS: ALBUMIN 2.8 GM/DL (3.2-5.2); ALT/SGPT 89 U/L (12-78); BILIRUBIN,TOTAL 0.4 MG/DL (0.2-1.0); BLOOD UREA NITROGEN 4 MG/DL (7-18); CARBON DIOXIDE LEVEL 26 MEQ/L (21-32); CHLORIDE LEVEL 111 MEQ/L (98-107); CREATININE FOR GFR 0.52 MG/DL (0.55-1.30); GLOMERULAR FILTRATION RATE > 60.0 (>60); GLUCOSE, FASTING 101 MG/DL (70-100); POTASSIUM SERUM 3.4 MEQ/L (3.5-5.1); SODIUM LEVEL 142 MEQ/L (136-145); TOTAL PROTEIN 6.1 GM/DL (6.4-8.2)
[2020-10-26] MEDS: NS 1,000 ML IV SCH ×2 (07:19→17:01)
[2020-10-26] MEDS: MULTIVITAMINS/MINERALS THERAP 1 TAB PO SCH (07:57)
[2020-10-26] MEDS: PANTOPRAZOLE 40MG TAB (PROTONIX) PO SCH (07:57)
[2020-10-26] MEDS: POTASSIUM CHLORIDE 10 MEQ SR TABLET PO SCH (10:45)
[2020-10-26 14:00] VITALS: BP 117/71
[2020-10-26] MEDS: SUMAtriptan SUCCINATE 25 MG TAB PO PRN (15:04)
[2020-10-26 15:08] LABS: Lyme Disease IgG/IgM Antibodie <0.91 ISR (0.00-0.90); Lyme Disease IgM Ab Quantitati <0.80 index (0.00-0.79)
[2020-10-26] MEDS ORDERED: LOMOTIL 2.5MG/0.025MG TABLET PO PRN (17:50)
--- NOTE | 2020-10-26 18:35 | IPNPDOC ---
Subjective Date Seen The patient was seen on 10/26/20. Subjective Chief Complaint/HPI Patient complaining of ongoing diarrhea. Also complains of bilateral hip pain. Her knee pains are better today. No fever or chills. Has some nausea. Objective Physical Examination General Exam: Positive: Alert, Cooperative, No Acute Distress Eye Exam: Positive: PERRLA, Conjunctiva & lids normal, EOMI; Negative: Sclera icteric ENT Exam: Positive: Atraumatic, Mucous membr. 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 Also check legionnaire antigen Migraine Continue home meds Plan/VTE VTE Prophylaxis Ordered?: Yes VS, I&O, 24H, Fishbone Vital Signs/I&O Vital Signs Date Time Temp Pulse Resp B/P (MAP) Pulse Ox O2 Delivery O2 Flow Rate FiO2 10/26/20 14:00 98.5 82 18 117/71 (86) Room Air 10/26/20 06:00 99 I&O- Last 24 Hours up to 6 AM 10/26/20 06:00 Intake Total 2740 ml Output Total 2100 ml Balance 640 ml Laboratory Data 24H LABS Laboratory Tests 2 10/26/20 05:51: Nucleated Red Blood Cells % (auto) 0.0, Anion Gap 5L, Glomerular Filtration Rate > 60.0, Calcium Level 8.0L, Total Bilirubin 0.4#, Aspartate Amino Transf (AST/SGOT) 31, Alanine Aminotransferase (ALT/SGPT) 89H, Alkaline Phosphatase 98, Total Protein 6.1L, Albumin 2.8L, Albumin/Globulin Ratio 0.8L CBC/BMP Laboratory Tests 10/26/20 05:51 Microbiology Microbiology 10/26/20 Gastrointestinal Tract Panel (PCR) - Final, Complete Adenovirus F 40/41 BRANDY YOUNG MD Oct 26, 2020 18:35
[2020-10-26] MEDS: ENOXAPARIN 40MG/0.4ML SYRINGE (J1650 PER 10MG) SC SCH (20:15)
[2020-10-26 22:00] VITALS: BP 133/69
[2020-10-27] MEDS: NS 1,000 ML IV SCH (02:08)
[2020-10-27 06:13] VITALS: BP 131/78
[2020-10-27 06:33] LABS: HEMATOCRIT 38.8 % (36.0-47.0); HEMOGLOBIN 13.2 g/dl (12.0-15.5); MEAN CORPUSCULAR HEMOGLOBIN 31.4 pg (27.0-33.0); MEAN CORPUSCULAR VOLUME 92.2 fl (80.0-96.0); PLATELET COUNT, AUTOMATED 293 10^3/uL (150-450); RED BLOOD COUNT 4.21 10^6/uL (4.00-5.40); WHITE BLOOD COUNT 6.3 10^3/uL (4.0-10.0)
[2020-10-27 07:00] LABS: ALBUMIN 2.9 GM/DL (3.2-5.2); ALT/SGPT 89 U/L (12-78); BILIRUBIN,TOTAL 0.3 MG/DL (0.2-1.0); BLOOD UREA NITROGEN 4 MG/DL (7-18); CALCIUM LEVEL 8.7 MG/DL (8.5-10.1); CARBON DIOXIDE LEVEL 27 MEQ/L (21-32); CHLORIDE LEVEL 111 MEQ/L (98-107); CREATININE FOR GFR 0.48 MG/DL (0.55-1.30); GLOMERULAR FILTRATION RATE > 60.0 (>60); GLUCOSE, FASTING 102 MG/DL (70-100); SODIUM LEVEL 143 MEQ/L (136-145); TOTAL PROTEIN 6.3 GM/DL (6.4-8.2)
--- NOTE | 2020-10-27 08:18 | CR ---
CONSULTATION DATE: 10/26/2020 Asked to consult by Dr. Barahona for evaluation of adenovirus gastroenteritis with joint pain and rash. 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 The patient, about a week ago, developed diarrhea, abdominal cramping with bloating. She had at least ten bowel movements a day. She was feeling crampy, she had some nausea and vomiting. She had low grade fevers of 99.9. She denied any rigors, dyspnea, chest pain, palpitations, dysuria, hematuria, or hematemesis. The patient had not noticed that she had a rash, but when she had an EKG the charge preparation technician noticed she had a faint maculopapular rash which was non-pruritic. She was seen by urgent care on 10/21/2020, had a gastrointestinal (GI) panel which was positive for adenovirus 40/41 and she had some hypokalemia. The patient kept feeling weaker and therefore came to the emergency room for evaluation. She feels better today, her joint pains have slightly improved. She had a mild transaminitis as well. PAST MEDICAL HISTORY: Severe community-acquired pneumonia when she was a teenager. PAST SURGICAL HISTORY: None. 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 FAMILY HISTORY: Father had esophageal cancer in his 40s. LABORATORY DATA: White count 8.8, hemoglobin 12.4, hematocrit 37.3, platelets 262, ESR 27, sodium 142, potassium 3.4 which has increased from 3.1, chloride 111, bicarbonate 26, BUN 4, creatinine 0.52, glucose 101, calcium 8, magnesium 1.8, bilirubin 1.4 down to 0.4, AST 43 down to 31, ALT 94 down to 89. Beta hCG negative. GI panel was positive for adenovirus F/40/41. IMAGING: Liver ultrasound for evaluation of transaminitis showed no focal lesions, liver is normal, gallbladder echogenic sludge, no stone or polyps. PHYSICAL EXAMINATION: Pleasant, in no acute distress. Temperature is 98.5, pulse 82, respirations 18, blood pressure 111/71, oxygen saturation 99% on room air. Heart: Normal S1, S2, no murmurs, rubs, or gallops. Lungs: Clear, no wheezes, rales, or rhonchi. Abdomen: Soft, nontender, no hepatosplenomegaly. Back: No costovertebral angle (CVA) or lumbosacral tenderness. Extremities: Varicose veins, no clubbing, cyanosis, or edema. Skin: With a faint maculopapular rash mostly over the upper chest and under the breasts. No petechiae. Joints: No effusions, normal range of motion hips and knees bilateral. MEDICATIONS: - KCl 40 mEq daily - multivitamin one tablet daily - ibuprofen 600 mg every 8 hours as needed - Lovenox 40 mg subcutaneous nightly - patient has refused Zofran as needed and Remeron 30 mg nightly as needed IMPRESSION: This is a 35-year-old female who contracted adenovirus from her son. She has syndrome of gastroenteritis, reactive arthritis, and a rash. She has been sick for about 7 days, but today she states she had a formed bowel movement. She had a mild transaminitis which also has been described with adenovirus can cause hepatitis and that is improving. Liver ultrasound is benign. PLAN: Continue with IV fluids, potassium replacement. She can have Lomotil as needed although I think the patient is in recovery and will not need any. Patient could be discharged home tomorrow. Ibuprofen as needed for joint pains. Potassium 40 mEq by mouth daily for hypokalemia.
[2020-10-27] MEDS: PANTOPRAZOLE 40MG TAB (PROTONIX) PO SCH (08:26)
[2020-10-27] MEDS: MULTIVITAMINS/MINERALS THERAP 1 TAB PO SCH (08:26)
[2020-10-27] MEDS: ONDANSETRON 4MG/2ML VIAL IV PRN (08:27)
[2020-10-27] MEDS: POTASSIUM CHLORIDE 10 MEQ SR TABLET PO SCH (08:27)
[2020-10-27] MEDS ORDERED: DIPH2.5T15 PO (11:14)
[2020-10-27] MEDS ORDERED: ONDA4TAB6 PO (11:14)
[2020-10-27] MEDS ORDERED: LOPE2CAP PO (11:16)
--- NOTE | 2020-10-28 17:35 | DS.PDOC ---
Discharge Summary General Date of Admission Oct 26, 2020 at 10:35 Date of Discharge 10/27/20 Discharge Summary PROCEDURES PERFORMED DURING STAY: [None]. DISCHARGE DIAGNOSES: Adenovirus mediated gastroenteritis Reactive arthritis Hypokalemia Hypophosphatemia Transaminitis due to viral infection COMPLICATIONS/CHIEF COMPLAINT: Nausea,Vomiting And Diarrehea. 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 legionnaire antigen negative, Lyme negative Migraine Continue home meds DISCHARGE MEDICATIONS: Please see below. ALLERGIES: Please see below. PHYSICAL EXAMINATION ON DISCHARGE: VITAL SIGNS: Please see below. General Exam: Positive: Alert, Cooperative, No Acute Distress Eye Exam: Positive: PERRLA, Conjunctiva & lids normal, EOMI; Negative: Sclera icteric ENT Exam: Positive: Atraumatic, Mucous membr. moist/pink, Pharynx Normal Neck Exam: Positive: Supple; Negative: JVD, thyromegaly Chest Exam: Positive: Clear to auscultation, Normal air movement Heart Exam: Positive: Rate Normal, Regular Rhythm, Normal S1, Normal S2; Negative: Murmurs, Rubs Abdomen Exam: Positive: BS Hyperactive, Soft; Negative: Tenderness, Hepatosplenomegaly Extremity Exam: Positive: Normal pulses; Negative: Clubbing, Cyanosis, Edema LABORATORY DATA: Please see below. ACTIVITY: [As tolerated]. DIET: As tolerated DISPOSITION: Home, Self-Care. DISCHARGE INSTRUCTIONS: Follow-up with PMD in 2 weeks ITEMS TO FOLLOWUP ON ON OUTPATIENT: Follow-up serological tests DISCHARGE CONDITION: [Stable]. TIME SPENT ON DISCHARGE: 35 minutes. Vital Signs/I&Os Vital Signs Date Time Temp Pulse Resp B/P (MAP) Pulse Ox O2 Delivery O2 Flow Rate FiO2 10/27/20 06:13 98.4 87 16 131/78 (95) 99 Room Air I&O- Last 24 Hours up to 6 AM 10/28/20 06:00 Intake Total 240 ml Output Total 650 ml Balance -410 ml Microbiology Microbiology 10/26/20 Gastrointestinal Tract Panel (PCR) - Final, Complete Adenovirus F Discharge Medications Scheduled Loperamide HCl (Loperamide) 2 Mg Capsule, 2 CAP PO Q6H for loose stools Multivitamins (Thera M Plus Tablet) 1 Each Tablet, 1 TAB PO QAM, (Reported) Norethindrone-E.estradiol-Iron (Blisovi Fe 1-20 Tablet) 1 Each Tablet, 1 TAB PO DAILY, (Reported) Pantoprazole Sodium (Pantoprazole Sodium) 40 Mg Tablet.dr, 40 MG PO DAILY, (Reported) Scheduled PRN Mirtazapine (Remeron) 30 Mg Tablet, 30 MG PO QHS PRN for SLEEP, (Reported) Ondansetron (Ondansetron Odt) 4 Mg Tab.rapdis, 4 MG PO TID PRN for NAUSEA OR VOMITING Allergies Coded Allergies: escitalopram (Verified Allergy, Unknown, 04/02/20) nausea and sleep disturbances BRANDY YOUNG MD Oct 28, 2020 17:35
== END 2020-10-27 12:43 | disposition home or self-care (01) | DRG 392 ==
LOC: M ED 06:28 → M MSPAV 06:29 → ENRESERV 13:55 → OBSVTOIN 10-26 10:35
PROVIDERS: ADMIT Internal Medicine; ATTEND Internal Medicine Nephrology
DX: A08.39 Other viral enteritis (principal); M19.90 Unspecified osteoarthritis, unspecified site; E87.6 Hypokalemia; E83.42 Hypomagnesemia; Z79.899 Other long term (current) drug therapy; Z88.8 Allergy status to other drugs, medicaments and biological substances; R21 Rash and other nonspecific skin eruption; E86.0 Dehydration

== ENCOUNTER 2021-11-18 12:42 | Emergency (ER) | payer BC, OTHER ==
[~2021-11-18] VITALS: Ht 167.6 cm; Wt 86.9 kg
[~2021-11-18 12:42] MED LIST changes: +BLIS1TAB2 PO; +DIPH2.5T15 PO; +LO LTAB PO; +LOPE2CAP PO; +MIRT-60 PO; +NAPR-885 PO; +ONDA4TAB6 PO; +PANT40TA29 PO; +VITMTA PO
[2021-11-18 15:09] LABS: BASO % 0.2 % (0.0-1.0); EOS % 0.5 % (0.0-3.0); HEMATOCRIT 43.7 % (36.0-47.0); HEMOGLOBIN 14.4 g/dl (12.0-15.5); LYMPH # 1.2 10^3/uL (1.5-5.0); MEAN CORPUSCULAR HEMOGLOBIN 30.4 pg (27.0-33.0); MEAN CORPUSCULAR VOLUME 92.2 fl (80.0-96.0); MONO # 0.4 10^3/uL (0.0-0.8); MONO % 6.3 % (2.0-8.0); NEUTROPHILS # 4.8 10^3/uL (1.5-8.5); NEUTROPHILS % 74.7 % (36.0-66.0); PLATELET COUNT, AUTOMATED 266 10^3/uL (150-450); RED BLOOD COUNT 4.74 10^6/uL (4.00-5.40); WHITE BLOOD COUNT 6.4 10^3/uL (4.0-10.0)
[2021-11-18 15:27] LABS: HCG, SERUM QUALITATIVE NEGATIVE (NEGATIVE)
[2021-11-18 15:34] LABS: ALBUMIN 3.9 GM/DL (3.2-5.2); ALT/SGPT 20 U/L (12-78); BILIRUBIN,DIRECT 0.2 MG/DL (0.0-0.2); BILIRUBIN,TOTAL 0.5 MG/DL (0.2-1.0); BLOOD UREA NITROGEN 9 MG/DL (7-18); CALCIUM LEVEL 9.1 MG/DL (8.5-10.1); CARBON DIOXIDE LEVEL 29 MEQ/L (21-32); CHLORIDE LEVEL 107 MEQ/L (98-107); CREATININE FOR GFR 0.76 MG/DL (0.55-1.30); GLOMERULAR FILTRATION RATE > 60.0 (>60); GLUCOSE, FASTING 95 MG/DL (70-100); LIPASE 150 U/L (73-393); POTASSIUM SERUM 4.5 MEQ/L (3.5-5.1); SODIUM LEVEL 139 MEQ/L (136-145); TOTAL PROTEIN 7.7 GM/DL (6.4-8.2)
[2021-11-18] MEDS ORDERED: ONDANSETRON 4MG 2ML VIAL IV ONE (16:35)
[2021-11-18] MEDS ORDERED: KETOROLAC 30 MG/ML 1ML VIAL IV ONE (16:50)
[2021-11-18] MEDS ORDERED: NS 1,000 ML IV ONE (16:50)
[2021-11-18] MEDS ORDERED: diphenhydrAMINE 50MG/ML VIAL (J1200) IV ONE (16:50)
[2021-11-18 17:47] LABS: RSV AMPLIFICATION NEGATIVE (NEGATIVE)
[2021-11-18] MEDS ORDERED: ONDA4TAB6 PO (19:43)
[2021-11-18 19:59] VITALS: BP 123/64
== END 2021-11-18 20:00 | disposition home or self-care (01) ==
LOC: M ED 12:42
DX: G43.909 Migraine, unspecified, not intractable, without status migrainosus (principal); F53.0 Postpartum depression; Z88.8 Allergy status to other drugs, medicaments and biological substances; Z79.1 Long term (current) use of non-steroidal anti-inflammatories (NSAID); Z79.83 Long term (current) use of bisphosphonates; Z79.899 Other long term (current) drug therapy
CPT/HCPCS: 76705; 80048; 80076; 83690; 84703; 85025; 87631; 96361; 96374; 96375; 99283; J1200; J1885; J2405

== ENCOUNTER 2022-09-19 22:02 | Emergency (ER) | payer BC ==
[~2022-09-19] VITALS: Ht 167.6 cm; Wt 95.0 kg
[2022-09-19 22:39] LABS: EOS # 0.2 10^3/uL (0.0-0.5); EOS % 2.6 % (0.0-3.0); HEMATOCRIT 42.2 % (36.0-47.0); HEMOGLOBIN 13.7 g/dl (12.0-15.5); LYMPH # 2.5 10^3/uL (1.5-5.0); MEAN CORPUSCULAR HEMOGLOBIN 29.9 pg (27.0-33.0); MEAN CORPUSCULAR HGB CONC 32.5 g/dl (32.0-36.5); MEAN CORPUSCULAR VOLUME 92.1 fl (80.0-96.0); MONO # 0.7 10^3/uL (0.0-0.8); MONO % 9.2 % (2.0-8.0); NEUTROPHILS # 4.4 10^3/uL (1.5-8.5); NEUTROPHILS % 55.9 % (36.0-66.0); PLATELET COUNT, AUTOMATED 263 10^3/uL (150-450); RED BLOOD COUNT 4.58 10^6/uL (4.00-5.40); WHITE BLOOD COUNT 7.8 10^3/uL (4.0-10.0)
[2022-09-19 22:52] LABS: ERYTHROCYTE SEDIMENTATION RATE 11 mm/hr (0-20)
[2022-09-19 23:05] LABS: BLOOD UREA NITROGEN 13 MG/DL (9-23); CALCIUM LEVEL 8.9 MG/DL (8.5-10.1); CARBON DIOXIDE LEVEL 28 MMOL/L (20-31); CHLORIDE LEVEL 104 MMOL/L (98-107); CREATININE FOR GFR 0.79 MG/DL (0.55-1.30); GLOMERULAR FILTRATION RATE > 60.0 (>60); GLUCOSE, FASTING 85 MG/DL (60-100); POTASSIUM SERUM 4.6 MMOL/L (3.5-5.1); SODIUM LEVEL 138 MMOL/L (136-145)
[2022-09-20 01:01] VITALS: TEMP 98
[2022-09-20 03:30] VITALS: BP 110/57; O2SAT 98
== END 2022-09-20 05:16 | disposition home or self-care (01) ==
LOC: M ED 22:02
DX: I82.812 Embolism and thrombosis of superficial veins of left lower extremity (principal); G43.909 Migraine, unspecified, not intractable, without status migrainosus; Z88.8 Allergy status to other drugs, medicaments and biological substances; Z79.83 Long term (current) use of bisphosphonates; Z79.899 Other long term (current) drug therapy

== ENCOUNTER → 2022-11-22 | Outpatient (REF) | LOC: M EMP 08:31 | PROVIDERS: ATTEND Family Medicine | DX: Z11.52 Encounter for screening for COVID-19 (principal) ==

== ENCOUNTER → 2022-12-05 | Outpatient (REF) | payer BC ==
[2022-12-05 17:55] LABS: FREE T4 1.01 NG/DL (0.89-1.76)
== END ==
LOC: M SFHCADAM 13:50
PROVIDERS: ATTEND Family Medicine
DX: F32.0 Major depressive disorder, single episode, mild (principal); R94.6 Abnormal results of thyroid function studies

== ENCOUNTER 2023-02-27 19:52 | Emergency (ER) | payer OTHER, BC ==
[2023-02-27 20:12] VITALS: BP 137/80; TEMP 98; O2SAT 100
[2023-02-27] MEDS ORDERED: ACETAMINOPHEN 500 MG TAB PO ONE (20:25)
[2023-02-27] MEDS ORDERED: LIDOCAINE 4% TOPICAL SOLN 50 ML BTL TOP ONE (20:30)
[2023-02-27] MEDS ORDERED: EMLA CREAM 5GM TUBE (LIDOCAINE/PRILOCAINE) TOP ONE (20:50)
== END 2023-02-27 21:25 | disposition home or self-care (01) ==
LOC: M ED 19:52
DX: S01.01XA Laceration without foreign body of scalp, initial encounter (principal); Y99.0 Civilian activity done for income or pay; Y92.9 Unspecified place or not applicable; Z88.8 Allergy status to other drugs, medicaments and biological substances

== ENCOUNTER → 2023-03-12 | Outpatient (REF) | LOC: M EMP 09:18 | PROVIDERS: ATTEND Family Medicine | DX: Z11.52 Encounter for screening for COVID-19 (principal) ==

== ENCOUNTER → 2023-08-17 | Outpatient (REF) | payer BC ==
[~2023-08-17] MED LIST changes: +DIPH1TAB81 PO; -DIPH2.5T15 PO; -MIRT-60 PO; +MIRT-89 PO
== END ==
LOC: M PLALAB 13:52
PROVIDERS: ATTEND Advanced Practice Midwife
DX: Z01.419 Encounter for gynecological examination (general) (routine) without abnormal findings (principal); Z12.4 Encounter for screening for malignant neoplasm of cervix; Z11.51 Encounter for screening for human papillomavirus (HPV)
CPT/HCPCS: 87624; G0123

== ENCOUNTER → 2023-12-04 | Outpatient (REF) | payer BC ==
[~2023-12-04] MED LIST changes: +ONDA-282 PO; -ONDA4TAB6 PO
[2023-12-04 18:04] LABS: HEMATOCRIT 43.2 % (36.0-47.0); HEMOGLOBIN 14.2 g/dl (12.0-15.5); MEAN CORPUSCULAR HEMOGLOBIN 30.7 pg (27.0-33.0); MEAN CORPUSCULAR HGB CONC 32.9 g/dl (32.0-36.5); MEAN CORPUSCULAR VOLUME 93.5 fl (80.0-96.0); PLATELET COUNT, AUTOMATED 270 10^3/uL (150-450); RED BLOOD COUNT 4.62 10^6/uL (4.00-5.40); WHITE BLOOD COUNT 8.2 10^3/uL (4.0-10.0)
[2023-12-04 18:21] LABS: HEMOGLOBIN A1c 4.8 % (4.0-6.0)
[2023-12-04 18:34] LABS: ALBUMIN 4.1 G/DL (3.2-5.2); ALKALINE PHOSPHATASE 97 U/L (46-116); ALT/SGPT 15 U/L (7.0-40); AST/SGOT 11 U/L (<34); BILIRUBIN,TOTAL 0.5 MG/DL (0.3-1.2); BLOOD UREA NITROGEN 15 MG/DL (9-23); CALCIUM LEVEL 9.2 MG/DL (8.5-10.1); CARBON DIOXIDE LEVEL 24 MMOL/L (20-31); CHLORIDE LEVEL 107 MMOL/L (98-107); CHOLESTEROL LEVEL 178 MG/DL (<200); CHOLESTEROL RISK RATIO 3.12 (<5); CREATININE FOR GFR 0.84 MG/DL (0.55-1.30); GLOMERULAR FILTRATION RATE > 60.0 (>60); GLUCOSE, FASTING 76 MG/DL (60-100); LDL CHOLESTEROL 98.8 MG/DL (<100); POTASSIUM SERUM 4.6 MMOL/L (3.5-5.1); SODIUM LEVEL 138 MMOL/L (136-145); TOTAL PROTEIN 7.4 G/DL (5.7-8.2); TRIGLYCERIDES LEVEL 111 MG/DL (<150)
[2023-12-04 18:35] LABS: FREE T4 1.11 NG/DL (0.89-1.76); THYROID STIMULATING HORMONE 1.697 uIU/ML (0.55-4.78)
== END ==
LOC: M SFHCADAM 15:03
PROVIDERS: ATTEND Family Medicine
DX: G43.009 Migraine without aura, not intractable, without status migrainosus (principal); F32.0 Major depressive disorder, single episode, mild; R94.6 Abnormal results of thyroid function studies; Z13.220 Encounter for screening for lipoid disorders; Z13.1 Encounter for screening for diabetes mellitus

== ENCOUNTER → 2024-04-05 | Outpatient (REF) | payer BC | LOC: M LAB REF 15:06 | PROVIDERS: ATTEND Physician Assistant Medical | DX: B34.9 Viral infection, unspecified (principal) ==

== ENCOUNTER → 2024-06-23 | Outpatient (REF) | LOC: M EMP 10:11 | PROVIDERS: ATTEND Family Medicine | DX: Z20.822 Contact with and (suspected) exposure to COVID-19 (principal) ==

== ENCOUNTER → 2025-01-21 | Outpatient (REF) | payer BC ==
[2025-01-21 17:19] LABS: PLATELET COUNT, AUTOMATED 307 10^3/uL (150-450)
[2025-01-21 17:53] LABS: ALT/SGPT 17 U/L (7.0-40); AST/SGOT 13 U/L (<34); CALCIUM LEVEL 9.1 MG/DL (8.5-10.1); CARBON DIOXIDE LEVEL 26 MMOL/L (20-31); CHLORIDE LEVEL 107 MMOL/L (98-107); CHOLESTEROL LEVEL 186 MG/DL (<200); CHOLESTEROL RISK RATIO 3.27 (<5); CREATININE FOR GFR 0.83 MG/DL (0.55-1.30); GLOMERULAR FILTRATION RATE > 90.0 (>60); LDL CHOLESTEROL 89.0 MG/DL (<100); NON-HDL-C 129.2 MG/DL; POTASSIUM SERUM 4.7 MMOL/L (3.5-5.1); SODIUM LEVEL 143 MMOL/L (136-145); TRIGLYCERIDES LEVEL 201 MG/DL (<150)
[2025-01-21 17:58] LABS: FREE T4 1.07 NG/DL (0.89-1.76)
[2025-01-21 18:24] LABS: ESTIMATED AVERAGE GLUCOSE 91.0 MG/DL (60-110)
== END ==
LOC: M SFHCADAM 15:04
PROVIDERS: ATTEND Family Medicine
DX: G43.009 Migraine without aura, not intractable, without status migrainosus (principal); F32.0 Major depressive disorder, single episode, mild; R94.6 Abnormal results of thyroid function studies; Z13.220 Encounter for screening for lipoid disorders; Z13.1 Encounter for screening for diabetes mellitus